=== PATIENT | male | born 1965 | race Caucasian/White ===

== ENCOUNTER 2018-11-18 05:57 | Day surgery (SDC) | payer BC, OTHER ==
[~2018-11-18 05:57] MED LIST: Dextrose 5%-0.45% NaCl 1,000 ML IV SCH; Sodium Chloride 0.9% 10 ML Syringe FLUSH PRN
[2018-11-18] MEDS ORDERED: fentaNYL 100 MCG/2 ML SDV IV ONE ×4 (05:58→06:59)
[2018-11-18] MEDS ORDERED: Midazolam 1 MG/ML 2 ML SDV IV ONE ×7 (05:58→06:55)
[2018-11-18] MEDS ORDERED: fentaNYL 100 MCG/2 ML SDV ONE (06:16)
[2018-11-18] MEDS ORDERED: Midazolam 1 MG/ML 2 ML SDV ONE (06:16)
--- NOTE | 2018-11-18 08:30 | OR ---
DATE: 11/18/2018 PROCEDURE: Total colonoscopy. INSTRUMENT USED: [id number] Olympus video colonoscope. PREMEDICATIONS: Fentanyl 125 mcg intravenous and Versed 4 mg intravenous. The procedure was done under pulse oximetry, BP recording, and satellite project site monitor. INDICATIONS: Screening colonoscopic examination is done for detection of any polypoid lesions and removal, endoscopic hemostasis therapy if needed. DESCRIPTION OF PROCEDURE: Initial rectal exam was unremarkable. Rigid anoscopy was normal. The colonoscope was passed with ease. Few scattered diverticula were noted without bleeding from them. The colonoscope was passed with ease up to the ileocecal area, photographs were taken of the normal-appearing cecum identified by landmarks of appendiceal orifice and double-bulged ileocecal folds. No bleeding was noted from any of the visualized areas at the commencement of the examination. No stricture. No vascular ectasia. No large isolated ulcerations seen. No evidence of diffuse inflammatory bowel disease in the form of friability, contact bleeding, or ulcerations. No polyp or tumor mass was identified. The bowel preparation was found to be adequate, [place] scale 3. No bleeding was noted from any of the visualized areas at the completion of examination. IMPRESSION: Diverticulosis. The patient tolerated the procedure well. [facility] /[id number]
== END 2018-11-18 09:17 | disposition home or self-care (01) ==
LOC: DL.ENDO 05:57
PROVIDERS: ATTEND Internal Medicine Gastroenterology
DX: Z12.11 Encounter for screening for malignant neoplasm of colon (principal); K57.30 Diverticulosis of large intestine without perforation or abscess without bleeding; I10 Essential (primary) hypertension; E78.00 Pure hypercholesterolemia, unspecified
CPT/HCPCS: 45378; J2250; J3010; J7042

== ENCOUNTER 2021-10-04 17:05 | Emergency (ER) | payer OTHER ==
[2021-10-04] MEDS ORDERED: Lidocaine 2% Jelly 10 ML Urojet ONE (18:50)
[2021-10-04] MEDS ORDERED: Lidocaine 2% Jelly 10 ML Urojet MUCMEM ONE (19:10)
== END 2021-10-04 20:47 | disposition home or self-care (01) ==
LOC: DL.ED 17:05
DX: R33.9 Retention of urine, unspecified (principal); N99.110 Postprocedural urethral stricture, male, meatal; E78.00 Pure hypercholesterolemia, unspecified; I10 Essential (primary) hypertension; Z88.1 Allergy status to other antibiotic agents; Z91.048 Other nonmedicinal substance allergy status; Z79.4 Long term (current) use of insulin; Z79.899 Other long term (current) drug therapy
CPT/HCPCS: 51702; 81001; 87086; 99282; 99283-25